=== PATIENT | female | born 1970 | race African-American/Black ===

== ENCOUNTER 2016-10-16 03:24 | Inpatient (IN) ==
[2016-10-11 12:07] LABS: URINE MICRO REVIEW NEEDED? NO; URINE SOURCE VOIDED
[2016-10-11 12:19] LABS: BASO% 0.3 % (0.0-0.8); EOS# 0.13 X1000 (0.0-0.7); EOS% 2.3 % (0.0-10.0); HEMATOCRIT 37.9 % (37.0-47.0); HEMOGLOBIN 11.6 g/dL (12.0-16.0); LYMPH# 2.95 X1000 (1.2-3.4); LYMPH% 51.5 % (20.5-51.1); MANUAL DIFF NEEDED? YES; MCH 22.2 PG (27-31); MCHC 30.6 g/dL (33-37); MCV 72.5 FL (81-99); MONO# 0.55 X1000 (0.11-0.59); MONO% 9.6 % (1.7-9.3); MPV 10.1 FL (7.4-10.4); NEUT% 36.3 % (42.2-75.2); PLT 291 X1000 (130-400); RBC 5.23 XMIL (4.2-5.4)
[2016-10-11 12:23] LABS: BILIRUBIN URINE NEGATIVE (NEGATIVE); BLOOD URINE NEGATIVE (NEGATIVE); COLOR YELLOW; GLUCOSE URINE NEGATIVE (NEGATIVE); LEUKOCYTES URINE NEGATIVE (NEGATIVE); NITRITE URINE NEGATIVE (NEGATIVE); PROTEIN URINE NEGATIVE (NEGATIVE); SP GRAVITY URINE 1.017; TURBIDITY URINE CLEAR (CLEAR); UROBILINOGEN URINE NORMAL (NORMAL)
--- NOTE | 2016-10-11 12:23 | EKG Report ---
Test Performed on : 10/11/2016 11:56:47 AM Test Reason : PAT Blood Pressure : / mmHG Vent. Rate : 063 BPM Atrial Rate : 063 BPM P-R Int : 204 ms QRS Dur : 088 ms QT Int : 388 ms P-R-T Axes : 044 -10 007 degrees QTc Int : 397 ms Normal sinus rhythm. Normal ECG When compared with ECG of 20-SEP-2015 21:11, Vent. rate has decreased BY 47 BPM Confirmed by Darinel BURTON, Edwin Davila ([id number]) on 10/12/2016 11:16:20 AM
[2016-10-11 12:24] LABS: UR EPITHELIAL CELLS <10 /HPF (<10); URINE BACTERIA NEGATIVE /HPF; URINE RBC <10 /HPF (<10); URINE WBC <10 /HPF (<10)
[2016-10-11 12:30] LABS: EOS 2 % (1-10); LYMPHS 60 % (21-51); MONO 4 % (1-9)
--- NOTE | 2016-10-15 14:34 | HISTORY AND PHYSICAL ---
HISTORY OF PRESENT ILLNESS: Priscila is a 46-year-old black female who is being admitted for a total abdominal hysterectomy with bilateral salpingo-oophorectomy secondary to abnormal bleeding, mostly in the form of menorrhagia. She does have a known history of uterine fibroids and has been under the care of Dr. Dennis. They had been discussing the possibilities of hysterectomy but he indicated to her that he was no longer taking the role as primary surgeon but rather as the physician assistant psychiatry and therefore she was referred over to me for scheduling and he and I will work together regarding her surgery. She has decided that she would like to go ahead and have her ovaries removed at the same time. She has previously had surgery for a colon polyp that required resection of about 6 inches of her colon. She has also had a right foot bunionectomy and an umbilical hernia. She has no known allergies. She relates that basically her periods are extremely heavy going through excessive protection and essentially preventing her from being able to carry on her daily routine during that time of the month. We did discuss the nature of the procedure, the risk involved, the risk of anesthesia, other issues including but not limited to potential injury to surrounding structures. We talked about that if there is an excessive amount of scarring especially involving the bowel that we may even have to get a general surgeon into the room to help out with that part. We discussed infection, hemorrhage, and even . We discussed the usual length of hospitalization, the recuperation time at home and the restrictions therein, and overall she feels well informed in regards to the proposed procedure. The uterus is about 16-week size and we even discussed the possibility of doing a supracervical hysterectomy if it does not lend itself well to being able to remove the cervix. Overall, she felt well informed in regards to the discussion and had no further questions. Past history other than the above is significant for a miscarriage. CURRENT MEDICATIONS: Include iron supplementation, omeprazole, amlodipine and hydrocodone. ALLERGIES: She has no known allergies. FAMILY HISTORY: Significant for diabetes and heart disease in her mother and her father had melanoma. SOCIAL HISTORY: Otherwise noncontributory. REVIEW OF SYSTEMS: Otherwise noncontributory. PHYSICAL EXAMINATION: GENERAL: Exam is that of a well-developed, well-nourished 46-year-old black female in no acute distress. VITAL SIGNS: Stable. Noted on the chart. HEENT: Unremarkable. NECK: Without nodes or thyromegaly. HEART: Regular without murmurs, gallops, or rubs. LUNGS: Clear. BREASTS: Without mass or tenderness. ABDOMEN: Soft, nontender. No masses. PELVIC: Normal external female genitalia. Vagina is clean. Cervix, no lesions and reasonably well supported in the pelvis. Uterus is definitely globular, enlarged about 16-week size. Several fibroids were felt. No adnexal masses are noted. Rectovaginal exam is unremarkable. EXTREMITIES: Without tenderness or edema. NEUROLOGICAL: Grossly normal. ASSESSMENT: 1. Fibroid uterus. 2. Abnormal uterine bleeding. 3. Menorrhagia. PLAN: Total abdominal hysterectomy and bilateral salpingo-oophorectomy. cc: Octaviano Tejada MD
[2016-10-16] MEDS ORDERED: PEPCID ONE (05:32)
[2016-10-16] MEDS ORDERED: REGLAN ONE (05:32)
[2016-10-16] MEDS ORDERED: KEFZOL 1 GM/D5W 1 GM/50 ML IVPB ONE (05:33)
[2016-10-16] MEDS ORDERED: LR 1,000 ML ONE ×3 (05:33→15:33)
[2016-10-16] MEDS ORDERED: DIPRIVAN 1% ONE (06:23)
[2016-10-16] MEDS ORDERED: FENTANYL ONE ×2 (06:24→07:12)
[2016-10-16] MEDS ORDERED: VERSED ONE (06:24)
[2016-10-16] MEDS ORDERED: XYLOCAINE-MPF 2% ONE (06:25)
[2016-10-16] MEDS ORDERED: QUELICIN (DOSE) ONE (06:25)
[2016-10-16] MEDS ORDERED: ZOFRAN ONE (06:25)
[2016-10-16] MEDS ORDERED: ZEMURON ONE (06:26)
[2016-10-16] MEDS ORDERED: OFIRMEV 1000 MG/ISOTONIC SOLN 1,000 MG/100 ML BOTTLE ONE (06:59)
[2016-10-16] MEDS ORDERED: MARCAINE 0.25% PF ONE (07:29)
[2016-10-16] MEDS ORDERED: SODIUM CHLORIDE 0.9% 10 ML ONE ×2 (07:29→09:00)
[2016-10-16] MEDS ORDERED: EXPAREL 1.3% ONE (07:30)
[2016-10-16 07:32] LABS: URINE MICRO REVIEW NEEDED? NO; URINE SOURCE CATH
[2016-10-16 07:36] LABS: BILIRUBIN URINE NEGATIVE (NEGATIVE); BLOOD URINE NEGATIVE (NEGATIVE); COLOR STRAW; GLUCOSE URINE NEGATIVE (NEGATIVE); LEUKOCYTES URINE NEGATIVE (NEGATIVE); NITRITE URINE NEGATIVE (NEGATIVE); PH URINE 6.5; PROTEIN URINE NEGATIVE (NEGATIVE); SP GRAVITY URINE 1.005; TURBIDITY URINE CLEAR (CLEAR); UROBILINOGEN URINE NORMAL (NORMAL)
[2016-10-16 07:37] LABS: UR EPITHELIAL CELLS <10 /HPF (<10); URINE BACTERIA NEGATIVE /HPF; URINE RBC <10 /HPF (<10); URINE WBC <10 /HPF (<10)
[2016-10-16] MEDS ORDERED: NEOSTIGMINE ONE (07:41)
[2016-10-16] MEDS ORDERED: ROBINUL ONE (07:42)
[2016-10-16] MEDS ORDERED: DECADRON ONE (07:47)
[2016-10-16] MEDS: MORPHINE ONE ×2 (08:39→08:44)
[2016-10-16] MEDS ORDERED: LR 500 ML ONE (08:44)
[2016-10-16] MEDS: DILAUDID ONE ×6 (08:50→10:15)
[2016-10-16] MEDS: PHENERGAN ONE ×4 (09:05→09:22)
[2016-10-16] MEDS ORDERED: TORADOL ONE (09:30)
[2016-10-16] MEDS ORDERED: DILAUDID PCA VIAL ONE (09:46)
[2016-10-16] MEDS ORDERED: CLIMARA 0.05 MG/24 HR PATCH TD ONE (11:16)
--- NOTE | 2016-10-16 12:45 | OPERATIVE NOTE ---
PROCEDURE DATE: 10/16/2016 SURGEON: Dr. Octaviano Tejada. PSYCHOPAEDIC NURSE: Dr. Esau Dennis. ANESTHESIA: General, Dr. Barrett. PREOPERATIVE DIAGNOSES: 1. Fibroid uterus. 2. Abnormal uterine bleeding, mostly in the form of menorrhagia. PROCEDURES PERFORMED: Total abdominal hysterectomy with bilateral salpingo-oophorectomy. FINDINGS AT THE TIME OF SURGERY: Enlarged uterus, about 16 weeks size. Multiple fibroids. Grossly normal ovaries and tubes. OPERATIVE NOTE: Priscila was brought to the operating room and, after being placed upon the operating table and under general anesthesia, she was then prepped and draped in the usual sterile fashion with a Marin catheter in place. The abdomen was entered going through a Pfannenstiel incision and, once the peritoneum was opened and extended, the fundus of the uterus was easily identified. We inserted the Steven retractor and grasped the fundus of the uterus with Ricki clamps and attempted to deliver it up through the abdominal incision. When it became apparent that it was not going to release itself, we then used the LigaSure to clamp, cauterize, and transect the adnexal attachments to the uterus. We carried this on down past the round ligament on each side to give us a little bit more mobility. Once we were able to do that, we did create the bladder flap anteriorly and then, with Dalia clamps, we clamped, transected, and suture ligated the uterine vessels and also extirpated the fundus of the uterus and regrasped the cervical stump with the Ricki clamps. We took care to assure that the bladder was down and away anteriorly and then, in a stepwise manner using Getachew clamps, we clamped, transected, and suture ligated the remaining paracervical tissue down to and ultimately including the uterosacral ligament on each side. At this point, we then could visualize the anterior vagina and, using the Jameel scissors, we entered the anterior vagina and then worked our way completely around the vaginal attachments to the cervix to ultimately remove the cervix. We placed Kochers on the lateral angles of the vagina and then, once the specimen was passed off the table, we secured the angles, attaching the suture to the uterosacrals for support purposes bilaterally. Then, with approximately 4 more sutures, we were able to place [id number] style stitches to close the vaginal cuff and to provide good hemostasis. There was a little bit of bleeding in the adventitial tissue near the bladder toward the left side, and we placed a [id number] style stitch there to provide hemostasis. In the end, we then went back to extirpate the tubes and ovaries. Starting on the left side, using a Monroe clamp, we grasped the tube and ovary, elevating it and reflecting it away from the pelvic sidewall. The ureter was found to be deep to these structures and then we were able to use the LigaSure to clamp, cauterize, and transect the ovary and tube away from the infundibulopelvic ligament. This was done in a stepwise manner to assure good transection and hemostasis. The same exact procedure was done on the right side. After both the ovaries and tubes had been removed, we went back and reinspected the remaining pedicles, which were found to be hemostatic. We irrigated the pelvic cavity and inspected, and ultimately confirmed hemostasis throughout. Any excess suture material was then cut and then we began closure of the abdominal incision first with the peritoneum. We placed Sugey clamps on either side of the peritoneal margin and placed a running 0 Polysorb to reapproximate the peritoneum. The subfascial plane was controlled hemostatically with the electrocautery and the fascia was run back together with 2 separate strands of #1 Polysorb, starting first on the right- hand side, being run over to the midpoint, and then likewise from the left side over to the midpoint. The subcutaneous layer and subcuticular layers were controlled hemostatically, irrigated and found to be dry, and then we placed a 3-0 Polysorb subcuticular stitch to reapproximate the skin edges. It was then cleaned and covered with Steri-Strips and a dry gauze pressure dressing. At that point, Dr. Roman came in to do the TAP block for part of Priscila's pain relief. In the end, the estimated blood loss was 120 mL. She had clear, abundant urine output and all of the needle, sponge, and instrument counts were correct. Priscila was awakened and transferred to the stretcher and to the recovery room in stable condition. It should be noted, as well, that I did speak with her mom out in the waiting area to let her know that the procedure had gone well, that we were able to accomplish everything, and that no adverse events occurred during the procedure. She was pleased with the report and felt well informed. cc: MD Esau Pino MD
--- NOTE | 2016-10-16 14:18 | PROGRESS NOTE ---
DATE: 10/16/2016 SUBJECTIVE: Priscila is now approximately 6 hours status post total abdominal hysterectomy with bilateral salpingo-oophorectomy. She is resting comfortably back out on outpatient as they are waiting for her room to become available up on the fourth floor. OBJECTIVE: She remains afebrile with stable vital signs. Dressing is dry. Urine output is abundant and clear. She relates that her FASHION MODEL is providing reasonably good pain relief, and she voices no need for anything in particular at this point in time. PLAN: We discussed the nature of her surgery and what our plans are for the remainder of the day and tonight and will replan to visit her again in the morning about 8:00 a.m. to increase her diet, her activity, and to evaluate over the morning hours tomorrow to see if she may be a candidate for discharge to home around lunch time. Overall, she is status post CHELY/BSO stable and will continue as ordered. cc: Octaviano Tejada MD
[2016-10-16] MEDS ORDERED: TYLENOL ONE (14:29)
[2016-10-16] MEDS ORDERED: ZOFRAN IV PRN (16:31)
[2016-10-16] MEDS ORDERED: SODIUM CHLORIDE 0.9% INJ PRN (16:31)
[2016-10-16] MEDS ORDERED: PHENERGAN IV PRN (16:31)
[2016-10-16] MEDS ORDERED: DILAUDID PCA VIAL IV PRN (16:31)
[2016-10-16] MEDS ORDERED: NARCAN IV PRN (16:31)
[2016-10-16] MEDS ORDERED: BENADRYL IV PRN (16:31)
[2016-10-16] MEDS: TYLENOL PO SCH ×2 (17:25→22:14)
[2016-10-16] MEDS: LR 1,000 ML IV SCH ×2 (17:53→22:16)
[2016-10-16] MEDS: PERIDEX MT SCH ×2 (22:13→22:22)
[2016-10-16] MEDS: CEPACOL SORE THROAT LOZENGE MT PRN (22:15)
[2016-10-17] MEDS: LR 1,000 ML IV SCH ×4 (02:14→20:48)
[2016-10-17] MEDS: CEPACOL SORE THROAT LOZENGE MT PRN (02:15)
[2016-10-17] MEDS: TYLENOL PO SCH (03:18)
[2016-10-17 06:20] LABS: HEMATOCRIT 32.9 % (37.0-47.0); HEMOGLOBIN 9.8 g/dL (12.0-16.0); MCH 22.2 PG (27-31); MCHC 29.8 g/dL (33-37); MCV 74.4 FL (81-99); MPV 10.8 FL (7.4-10.4); RBC 4.42 XMIL (4.2-5.4)
[2016-10-17] MEDS ORDERED: SALINE LOCK IV FLUID XX ONE (06:25)
[2016-10-17] MEDS: PRILOSEC PO SCH (08:10)
[2016-10-17] MEDS: NORVASC PO SCH (08:10)
[2016-10-17] MEDS: PERIDEX MT SCH ×2 (08:10→20:47)
[2016-10-17] MEDS: NORCO-10 PO PRN ×2 (08:11→11:57)
--- NOTE | 2016-10-17 08:21 | PROGRESS NOTE ---
DATE: 10/17/2016 Priscila is now about 24 hours status post total abdominal hysterectomy with bilateral salpingo- oophorectomy. She relates that she is having a moderate amount of discomfort, which she expects. It does seem to be improved with her analgesics. She remains afebrile with stable vital signs. She had a reasonably restful night for the 1st night. Abdomen is soft, nontender. The dressing is dry. Extremities without tenderness or edema. White blood count 10.1, hematocrit 32.9. She has been able to void once today since the Marin catheter has been removed and we will see how things progress along this morning to see if she may be a candidate for discharge around lunchtime today. At this point, she voiced no concerns and felt that all of her needs were being met satisfactorily. She is stable postop, status post CHELY with BSO. cc: Octaviano Tejada MD
--- NOTE | 2016-10-17 13:18 | PROGRESS NOTE ---
DATE: 10/17/2016 Priscila is now approaching a day and a half postop status post total abdominal hysterectomy with bilateral salpingo-oophorectomy. She has been able to void without the catheter and has been able to eat solid food and drink liquids but due to her discomfort she is not getting around adequately at this point to be discharged. Also secondarily she does not have a lot of support resources at home and due to this I feel that it is important that she go ahead and stay another night in the hospital. In regards to that we are going to change her pain medication to Dilaudid 2 mg every 3- 4 hours p.o. and try to encourage her to be up and moving around more to try to work out the soreness. We did just remove the bandage and the incision is clean and dry. Steri-Strips are intact and I reassured her that she seems to be doing well but we would just like to get a better handle on her pain and see her be more active. We encourage that over the remainder of today and tonight and we will re-evaluate tomorrow morning to see how things are coming along for Priscila. She is stable status post CHELY/BSO. cc: Octaviano Tejada MD
[2016-10-17] MEDS: DILAUDID PO PRN ×3 (15:29→22:14)
[2016-10-18] MEDS: DILAUDID PO PRN (01:56)
[2016-10-18] MEDS: TYLENOL PO SCH (01:59)
[2016-10-18 03:45] VITALS: BP 134/90
[2016-10-18] MEDS: PRILOSEC PO SCH (08:25)
[2016-10-18] MEDS: NORVASC PO SCH (08:25)
[2016-10-18] MEDS: PERIDEX MT SCH (08:25)
--- NOTE | 2016-10-18 09:22 | PROGRESS NOTE ---
DATE: 10/18/2016 SUBJECTIVE: Priscila is now 48 hours status post CHELY/BSO. She was slow to move around yesterday and did not have a lot of support resources at home, so we felt it would be best for her to stay 1 more night in the hospital. She did have a better night last night. She was able to get up and walk several times around the entire 4th floor and seems to be doing well. Only complaint this morning is a little bit and nausea and she feels like it is probably due to the Dilaudid that we changed her over to for her pain. She does feel like she is ready to go home today. She has remained afebrile with stable vital signs. OBJECTIVE: Abdomen: Soft. Incision is clean and dry. Extremities: Without any tenderness or edema. ASSESSMENT AND PLAN: She has been able to eat her meals and drink plenty of liquids. Will go ahead and discharge her to home today. Her mother will be helping her some. Will plan to see Priscila back in the office on the 29 of October. She will call to schedule that herself. We went over instructions including routine activity, suggested lots of walking but rest when needed, incision care with at least 2 showers a day, lifting, driving, and intimacy. Overall she felt well informed in regards to the discharge plans. She will swap back over to the [place] 10 one-half to 1 tab every 4-6 hours if needed for pain. She is stable status post total abdominal hysterectomy with bilateral salpingo-oophorectomy and will be discharged today with the aforementioned plans. cc: Octaviano Tejada MD
== END 2016-10-18 09:11 | disposition home or self-care (01) ==
LOC: SURHOLD 03:24 → 4N 16:09
PROVIDERS: ADMIT Obstetrics & Gynecology; ATTEND Obstetrics & Gynecology